=== PATIENT | male | born 1975 | race African-American/Black ===

== ENCOUNTER 2020-09-17 13:23 | Emergency (ER) | payer SELFPAY ==
[~2020-09-17] VITALS: Ht 180.3 cm; Wt 84.0 kg
[2020-09-17] MEDS ORDERED: CYCLOBENZAPRINE10 MG PO (15:18)
[2020-09-17 15:26] VITALS: BP 146/97
== END 2020-09-17 15:29 | disposition left against medical advice (07) | DRG 563 ==
LOC: ED 13:23
DX: S39.012A Strain of muscle, fascia and tendon of lower back, initial encounter (principal); V89.2XXA Person injured in unspecified motor-vehicle accident, traffic, initial encounter; Z91.19 Patient's noncompliance with other medical treatment and regimen